=== PATIENT | female | born 1945 | race Caucasian/White ===

== ENCOUNTER 2022-11-26 10:41 | Outpatient (CLI) | payer MEDICARE ==
[2022-11-26 12:23] LABS: #Basophils 0.1 10x3/uL (0.0-0.2); #Eosinphils 0.2 10x3/uL (0.0-0.5); #Monocytes 0.5 10x3/uL (0.0-1.1); #Neutrophils 3.2 10x3/uL (1.5-8.4); %Basophils 1.5 % (0.0-2.0); %Eosinophils 3.6 % (0.0-6.0); %Lymphocytes 25.2 % (18.0-47.0); %Monocytes 8.9 % (0.0-10.0); %Neutrophils 60.4 % (40.0-75.0); Hemoglobin 13.6 g/dL (12.0-15.5); Mean Corpuscular HGB CONC 31.6 g/dL (32.0-36.0); Mean Corpuscular Hemoglobin 28.6 pg (27.0-33.0); Mean Corpuscular Volume 90.3 fl (81.6-98.3); Mean Platelet Volume 11.9 fl (7.4-10.4); Platelet Count 234 10x3/uL (150-450); RBC Distribution Width 14.6 % (11.5-14.5); Red Blood Cell (RBC) Count 4.76 10x6/uL (3.90-5.03); White Blood Cell (WBC) Count 5.3 10x3/uL (3.5-10.5)
[2022-11-26 12:32] LABS: Anion Gap 14 mmol/L (10-20); BUN (Urea Nitrogen) 12 mg/dL (9.8-20.1); Calc. Creatinine Clearance 0 mL/min (70-130); Calcium 9.5 mg/dL (7.8-10.44); Carbon Dioxide 26 mmol/L (23-31); Chloride 106 mmol/L (98-107); Estimated GFR 75; Glucose 95 mg/dL (83-110); Potassium 4.7 mmol/L (3.5-5.1); Sodium 141 mmol/L (136-145)
== END 2022-11-26 10:42 | disposition home or self-care (01) ==
LOC: LABBT 10:41
PROVIDERS: ATTEND Specialist
DX: Z01.818 Encounter for other preprocedural examination (principal); D05.12 Intraductal carcinoma in situ of left breast
CPT/HCPCS: 71046; 80048; 85025; 93005; 93010

== ENCOUNTER 2022-11-30 06:03 | Day surgery (SDC) | payer MEDICARE ==
[2022-11-26 14:44] VITALS: BMI 28.0
[2022-11-30] MEDS ORDERED: Isosulfan Blue 50 MG/5 ML VIAL ONE (06:49)
[2022-11-30] MEDS ORDERED: Lidocaine 2% PF 5 ML VIAL ONE (06:49)
[2022-11-30] MEDS ORDERED: Bupivacaine/Epinephrine 0.25% 30 ML VIAL ONE (06:49)
[2022-11-30] MEDS ORDERED: Fentanyl 250 MCG/5 ML VIAL ONE (07:01)
[2022-11-30] MEDS ORDERED: Ketorolac Tromethamine 30 MG/ML VIAL ONE (07:05)
[2022-11-30] MEDS ORDERED: Acetaminophen 500 MG TAB ONE (07:05)
[2022-11-30] MEDS ORDERED: CEFAZOLIN 2 GM VIAL ONE (07:37)
[2022-11-30] MEDS ORDERED: Sodium Chloride 0.9% 100 ML ONE (07:37)
[2022-11-30] MEDS ORDERED: Ondansetron PF 4 MG/2 ML Vial ONE (08:43)
[2022-11-30] MEDS ORDERED: Phenylephrine 10 MG/ML VIAL ONE (08:43)
[2022-11-30] MEDS ORDERED: Dexamethasone 20 MG/5 ML VIAL ONE (08:43)
[2022-11-30] MEDS ORDERED: ePHEDrine 50 MG/ML VIAL ONE (08:43)
[2022-11-30] MEDS ORDERED: Lidocaine 1% PF 5 ML VIAL ONE (08:43)
[2022-11-30] MEDS ORDERED: PROPOFOL 200 MG/20 ML VIAL ONE (08:43)
== END 2022-11-30 11:12 | disposition home or self-care (01) ==
LOC: SDC 06:03
PROVIDERS: ATTEND Specialist
PROC: 0HBU0ZZ Excision of Left Breast, Open Approach (ICD-10-PCS; principal; 2022-11-30)
DX: C50.212 Malignant neoplasm of upper-inner quadrant of left female breast (principal); E07.9 Disorder of thyroid, unspecified; Z17.0 Estrogen receptor positive status [ER+]; Z88.1 Allergy status to other antibiotic agents; Z88.5 Allergy status to narcotic agent; Z79.890 Hormone replacement therapy
CPT/HCPCS: 19301; 76098; C1713; Q9968; 88307; 88341; 88342; J1100; J1885; J2001; J2370; J2405; J2704; J3010; J3490

== ENCOUNTER 2022-12-23 07:41 | Day surgery (SDC) | payer MEDICARE ==
[2022-12-21 11:09] VITALS: BMI 28.0
[2022-12-23] MEDS ORDERED: Acetaminophen 500 MG TAB ONE (09:25)
[2022-12-23] MEDS ORDERED: Ketorolac Tromethamine 30 MG/ML VIAL ONE (10:49)
[2022-12-23] MEDS ORDERED: fentaNYL PF 100 MCG/2 ML SYRINGE ONE (12:59)
[2022-12-23] MEDS ORDERED: Lidocaine 2% PF 5 ML VIAL ONE (13:13)
[2022-12-23] MEDS ORDERED: Bupivacaine/Epinephrine 0.25% 30 ML VIAL ONE (13:13)
[2022-12-23] MEDS ORDERED: Isosulfan Blue 50 MG/5 ML VIAL ONE (13:13)
[2022-12-23] MEDS ORDERED: CEFAZOLIN 2 GM VIAL ONE (13:25)
[2022-12-23] MEDS ORDERED: Sodium Chloride 0.9% 100 ML ONE (13:25)
[2022-12-23] MEDS ORDERED: Dexamethasone 20 MG/5 ML VIAL ONE (13:39)
[2022-12-23] MEDS ORDERED: Lidocaine 1% PF 5 ML VIAL ONE (13:39)
[2022-12-23] MEDS ORDERED: PROPOFOL 200 MG/20 ML VIAL ONE (13:39)
[2022-12-23] MEDS ORDERED: ePHEDrine Sulfate 50 MG/10 ML VIAL ONE (13:39)
[2022-12-23] MEDS ORDERED: Ondansetron PF 4 MG/2 ML Vial ONE (13:39)
[2022-12-23] MEDS ORDERED: Phenylephrine 10 MG/ML VIAL ONE (13:39)
== END 2022-12-23 16:12 | disposition home or self-care (01) ==
LOC: SDC 07:41
PROVIDERS: ATTEND Specialist
PROC: 07B60ZX Excision of Left Axillary Lymphatic, Open Approach, Diagnostic (ICD-10-PCS; principal; 2022-12-23)
PROC: 0HB5XZX Excision of Chest Skin, External Approach, Diagnostic (ICD-10-PCS; 2022-12-23)
DX: C50.912 Malignant neoplasm of unspecified site of left female breast (principal); L82.1 Other seborrheic keratosis; E07.9 Disorder of thyroid, unspecified; Z17.0 Estrogen receptor positive status [ER+]; Z79.890 Hormone replacement therapy; Z88.1 Allergy status to other antibiotic agents; Z88.5 Allergy status to narcotic agent; Z97.4 Presence of external hearing-aid
CPT/HCPCS: 11102; 38525; 38900; 78195; A9541; Q9968; 88305; 88307; 88341; 88342; J1100; J1885; J2001; J2370; J2405; J2704; J3490

== ENCOUNTER 2023-03-15 09:27 | Outpatient (CLI) | payer MEDICARE | END 2023-03-15 09:28 | disposition home or self-care (01) | LOC: BICMAMMO 09:27 | PROVIDERS: ATTEND Internal Medicine | DX: Z13.820 Encounter for screening for osteoporosis (principal); T38.6X5A Adverse effect of antigonadotrophins, antiestrogens, antiandrogens, not elsewhere classified, initial encounter; M85.851 Other specified disorders of bone density and structure, right thigh; M85.852 Other specified disorders of bone density and structure, left thigh | CPT/HCPCS: 77080 ==

== ENCOUNTER 2023-10-25 12:50 | Outpatient (CLI) | payer MEDICARE | END 2023-10-25 12:51 | disposition home or self-care (01) | LOC: BICMAMMO 12:50 | PROVIDERS: ATTEND Specialist | DX: Z08 Encounter for follow-up examination after completed treatment for malignant neoplasm (principal); Z85.3 Personal history of malignant neoplasm of breast | CPT/HCPCS: 77066; G0279 ==